=== PATIENT | female | born 1975 | race Caucasian/White ===

== ENCOUNTER 2017-05-13 20:01 | Emergency (ER) | payer OTHER ==
[~2017-05-13] VITALS: Ht 166.4 cm; Wt 81.8 kg
[~2017-05-13 20:01] MED LIST: ACIDCAP5 PO; CYCL-36 PO; CYMB30CA PO; DILA4TAB10 PO; FAMO20TA2 PO; FLAG500T PO; GABA100C4 PO; MOBI15TA PO
[2017-05-13 20:04] VITALS: BP 131/58; PULSE 79; RESP 16; TEMP 98.4; O2SAT 98
[2017-05-13] MEDS ORDERED: DULO20 PO (20:19)
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
[2017-05-13] MEDS ORDERED: ACETAMINOPHEN/HYDROcodone 325 MG/5 MG TAB PO ONE (21:15)
--- NOTE | 2017-05-13 21:49 | RADRPT ---
EXAM DATE/TIME: 05/13/2017 21:20 [facility] COMPARISON: KNEE RIGHT COMPLETE (4VWS), April 15, 2015, 21:36. INDICATIONS : Right knee pain post fall today. MEDICAL HISTORY : None. SURGICAL HISTORY : None. ENCOUNTER: Initial ACUITY: 1 day PAIN SCORE: 9/10 LOCATION: Right knee. FINDINGS: Four views of the right knee demonstrate no fracture or dislocation. A large joint effusion is presen t. There is no significant arthropathy and mineralization is within normal limits. No soft tissue abn ormality or radiopaque foreign body is identified. CONCLUSION: Large joint effusion. No fracture is identified. Daryn Pacheco MD on May 13, 2017 at 21:47 Board Certified Radiologist. This report was verified electronically.
[2017-05-13] MEDS ORDERED: IBUP-232 PO (21:58)
[2017-05-22] MEDS ORDERED: OMEP20TA PO (14:49)
[2017-05-22] MEDS ORDERED: IBUP-232 PO (14:49)
== END 2017-05-13 22:21 | disposition home or self-care (01) ==
LOC: PHEFT 20:01
DX: M25.461 Effusion, right knee (principal)
CPT/HCPCS: 73564; 99283; E0113

== ENCOUNTER → 2017-05-22 | Outpatient (CLI) | payer OTHER ==
[~2017-05-22] MED LIST changes: -ACIDCAP5 PO; -CYCL-36 PO; -CYMB30CA PO; -DILA4TAB10 PO; +DULO20 PO; -FAMO20TA2 PO; -FLAG500T PO; -GABA100C4 PO; +IBUP-232 PO; -MOBI15TA PO; +OMEP20TA PO
[2017-05-22 15:45] LABS: HEMATOCRIT 38.6 % (35.0-46.0); MEAN CORPUSCULAR HEMOGLOBIN 29.5 PG (27.0-34.0); MEAN CORPUSCULAR HGB CONC 32.1 % (32.0-36.0); PLATELET COUNT 265 TH/MM3 (150-450); RED CELL DISTRIBUTION WIDTH 16.8 % (11.6-17.2); REVIEW FLAG FINAL; WHITE BLOOD COUNT 6.6 TH/MM3 (4.0-11.0)
[2017-05-22 15:45] LABS: BLOOD, URINE NEG (NEG); GLUCOSE,URINE NEG (NEG); KETONE, URINE NEG (NEG); NITRITE,URINE NEG (NEG); PH, URINE 5.5 (5.0-8.5); URINE COLOR LIGHT-YELLOW (YELLW/STRAW)
[2017-05-22 15:50] LABS: COMMENT (UR) CULT NOT INDICATED; CULTURE IF INDICATED CULT NOT INDICATED
[2017-05-22 16:15] LABS: ALT (GPT) 20 U/L (10-53); ANION GAP 8 MEQ/L (5-15); AST (GOT) 26 U/L (15-37); BLOOD UREA NITROGEN 13 MG/DL (7-18); CHLORIDE 102 MEQ/L (98-107); GLOMERULAR FILTRATION RATE 58 ML/MIN (>89); GLUCOSE,FASTING 74 MG/DL (74-99); POTASSIUM 3.9 MEQ/L (3.5-5.1); SODIUM (NA) 139 MEQ/L (136-145)
[2017-05-22 16:17] LABS: ALKALINE PHOSPHATASE 77 U/L (45-117); TOTAL BILIRUBIN ADULT 0.1 MG/DL (0.2-1.0)
== END ==
LOC: CLAB 15:16
PROVIDERS: ATTEND Nurse Practitioner Family
DX: K21.0 Gastro-esophageal reflux disease with esophagitis (principal); M25.561 Pain in right knee; R10.9 Unspecified abdominal pain
CPT/HCPCS: 36415; 80053; 81001; 85027